=== PATIENT | female | born 1935 ===

== ENCOUNTER 2017-07-13 08:28 | Outpatient (CLI) | payer OTHER ==
[~2017-07-13] VITALS: Ht 152.4 cm; Wt 58.1 kg
== END 2017-07-13 08:50 | disposition home or self-care (01) ==
LOC: OFIC 805 08:28
DX: H90.3 Sensorineural hearing loss, bilateral (principal); H61.23 Impacted cerumen, bilateral; J31.2 Chronic pharyngitis; K21.9 Gastro-esophageal reflux disease without esophagitis

== ENCOUNTER 2018-09-24 10:08 | Outpatient (CLI) | payer OTHER | END 2018-09-24 10:11 | disposition home or self-care (01) | LOC: NUCLEAR 10:08 | DX: M81.0 Age-related osteoporosis without current pathological fracture (principal) ==

== ENCOUNTER 2019-05-01 07:18 | Outpatient (CLI) | payer OTHER | END 2019-05-01 07:23 | disposition home or self-care (01) | LOC: RX STUDY 07:18 | DX: R05 Cough (principal); R13.19 Other dysphagia ==